=== PATIENT | male | born 1960 | race Two or more races ===

== ENCOUNTER 2023-04-16 08:14 | Emergency (ER) | payer MEDICAID, OTHER ==
[~2023-04-16] VITALS: Ht 177.8 cm; Wt 99.1 kg
[2023-04-16 08:46] VITALS: BP 144/72; PULSE 65; RESP 16; TEMP 98.3; O2SAT 96
[2023-04-16] MEDS ORDERED: PROM1SOL4 PO (09:42)
[2023-04-16] MEDS ORDERED: ALBU108A5 IN (09:42)
[2023-04-16] MEDS ORDERED: AZIT500T66 PO (09:42)
== END 2023-04-16 09:48 | disposition home or self-care (01) ==
LOC: ER 08:14
DX: J20.9 Acute bronchitis, unspecified (principal); R07.89 Other chest pain
CPT/HCPCS: 71046